=== PATIENT | female | born 1960 | race Caucasian/White ===

== ENCOUNTER 2017-07-13 19:59 | Emergency (ER) | payer OTHER ==
[2017-07-13 20:37] LABS: BILIRUBIN,URINE NEGATIVE (NEGATIVE); GLUCOSE, URINE (UA) NEGATIVE (NEGATIVE); KETONES,URINE (UA) NEGATIVE (NEGATIVE); LEUKOCYTE ESTERASE, URINE NEGATIVE (NEGATIVE); NITRITE,URINE NEGATIVE (NEGATIVE); OCCULT BLOOD,URINE NEGATIVE (NEGATIVE); PH,URINE 5.5 PH (5.0-7.5); PROTEIN,URINE NEGATIVE (NEGATIVE); UROBILINOGEN,URINE 1 (NORMAL) E.U./dL (NORMAL)
[2017-07-13 20:38] LABS: CLARITY,URINE CLEAR (CLEAR)
[2017-07-13 20:58] LABS: BASOPHILS # (AUTO) 0.1 10^3/uL (0.0-0.1); BASOPHILS % (AUTO) 1.1 %; EOSINOPHILS # (AUTO) 0.1 10^3/uL (0.0-0.7); EOSINOPHILS % (AUTO) 0.9 %; HGB - HEMOGLOBIN 13.9 g/dL (12.0-16.0); LYMPHOCYTES % (AUTO) 20.9 %; MEAN CORPUSCULAR HEMOGLOBIN 28.7 pg (27.0-31.0); MEAN CORPUSCULAR HGB CONC 33.6 g/dL (32.0-36.0); MEAN CORPUSCULAR VOLUME 85.5 fL (81.0-99.0); MEAN PLATELET VOLUME 8.5 fL (7.9-10.8); MONOCYTES # (AUTO) 0.8 10^3/uL (0.0-1.0); MONOCYTES % (AUTO) 8.7 %; NEUTROPHILS # (AUTO) 6.4 10^3/uL (1.5-6.6); NEUTROPHILS % (AUTO) 68.4 %; PLT - PLATELET COUNT 338 10^3/uL (130-450); RED BLOOD COUNT 4.83 10^6/uL (4.20-5.40); RED CELL DISTRIBUTION WIDTH 13.1 % (12.0-15.0); WHITE BLOOD COUNT 9.4 x10^3/uL (4.8-10.8)
[2017-07-13 21:13] LABS: ALBUMIN 3.7 g/dL (3.2-5.5); ALBUMIN/GLOBULIN RATIO 0.9 (1.0-2.2); BILIRUBIN,TOTAL 1.9 mg/dL (0.2-1.0); CALCIUM 9.1 mg/dL (8.5-10.3); CREATININE 0.7 mg/dL (0.4-1.0)
--- NOTE | 2017-07-13 22:46 | ED Physician Documentation ---
PD HPI ABD PAIN - Stated complaint Stated Complaint: R SIDE PX - Chief complaint Chief Complaint: Abd Pain - History obtained from History obtained from: Patient - History of Present Illness Timing - onset: How many days ago (4) Timing - details: Abrupt onset, Intermittant, Waxing and waning Pain level max: 10 Pain level now: 3 Quality: Pain Location: RUQ Radiation: Right flank Improved by: Other (no ameliorating factors) Worsened by: Eating Associated symptoms: Nausea, Vomiting. No: Fever, Diarrhea, Constipation Similar symptoms before: Has not had sx before - Additional information Additional information: 4 days of episodes of right upper quadrant pain radiating to right flank, became severe this evening although improved prior to this eval. Review of Systems Constitutional: reports: Reviewed and negative Cardiac: reports: Reviewed and negative Respiratory: reports: Reviewed and negative GI: reports: Abdominal Pain, Abdominal Swelling, Nausea, Vomiting. denies: Constipation, Diarrhea, Hematemesis, Bloody / black stool : denies: Dysuria, Frequency PD PAST MEDICAL HISTORY - Past Medical History Past Medical History: Yes Cardiovascular: Congestive heart failure Respiratory: None Neuro: None Endocrine/Autoimmune: None GI: None [employer]: None : None HEENT: None Musculoskeletal: Scoliosis Derm: Other drug resistant infections - Past Surgical History Past Surgical History: Yes Ortho: Carpal Tunnel surgery - Present Medications Home Medications: Ambulatory Orders Medication Instructions Recorded Confirmed Ondansetron Odt [Zofran] 4 mg TL Q6H PRN #20 tablet 07/14/17 oxyCODONE [Roxicodone] 5 - 10 mg PO Q6H PRN #20 tablet 07/14/17 - Social History Does the pt smoke?: No Smoking Status: Never smoker Does the pt drink ETOH?: Yes Does the pt have substance abuse?: No - Immunizations Immunizations are current?: Yes PD ED PE NORMAL - Vitals Vital signs reviewed: Yes - General General: Alert and oriented X 3, No acute distress, Well developed/nourished - Cardiac Cardiac: RRR, No murmur - Respiratory Respiratory: No respiratory distress, Clear bilaterally - Abdomen Abdomen: Normal bowel sounds, Soft, Non distended, Other (mild RUQ tenderness without rebound or guarding) - Back Back: No CVA TTP - Derm Derm: Normal color, Warm and dry, No rash - Extremities Extremities: No edema Results - Vitals Vitals: Oxygen O2 Source Room air - Labs Labs: Laboratory Tests 07/13/17 07/13/17 07/13/17 20:25 20:54 20:54 WBC 9.4 RBC 4.83 Hgb 13.9 Hct 41.3 MCV 85.5 MCH 28.7 MCHC 33.6 RDW 13.1 Plt Count 338 MPV 8.5 Neut # 6.4 Lymph # 2.0 [place] # 0.8 Eos # 0.1 Baso # 0.1 Absolute Nucleated RBC 0.00 Nucleated RBC % 0.0 Sodium 135 Potassium 3.6 Chloride 101 Carbon Dioxide 24 Anion Gap 10.0 BUN 11 Creatinine 0.7 Estimated GFR (MDRD) 86 L Glucose 145 H Calcium 9.1 Total Bilirubin 1.9 H AST 314 H ALT 206 H Alkaline Phosphatase 142 H Total Protein 8.0 Albumin 3.7 Globulin 4.3 H Albumin/Globulin Ratio 0.9 L Lipase 26 Urine Color YELLOW Urine Clarity CLEAR Urine pH 5.5 Ur Specific [place] 1.010 Urine Protein NEGATIVE Urine Glucose (UA) NEGATIVE Urine Ketones NEGATIVE Urine Occult Blood NEGATIVE Urine Nitrite NEGATIVE Urine Bilirubin NEGATIVE Urine Urobilinogen 1 (NORMAL) Ur Leukocyte Esterase NEGATIVE Ur Microscopic Review NOT INDICATED Urine Culture Comments NOT INDICATED - Rads (name of study) RUQ US Radiology: Prelim report reviewed, See rad report PD MEDICAL DECISION MAKING - ED course Complexity details: reviewed results, re-evaluated patient, considered differential, d/w patient ED course: NAD on initial evaluation and on several reevaluations by me. she did, however, have a few more episodes of severe abdominal pain during ED stay between the times I was in room evaluating her. she tolerated small PO intake (water with PO pain medication). LFTs are elevated, but overall her appearance and test results suggest she can be discharged and seen in outpatient setting. I stressed to her the importance of returning if worse or if new signs/symptoms develop such as fever or intractable pain. she seems a very reliable patient and says she will seek follow up and will return if worse Departure - Departure Disposition: 01 Home, Self Care Clinical Impression: Biliary colic Condition: Good Instructions: ED Gallstone W Biliary Colic Follow-Up: CINTIA FRANK MD [Provider Admit Priv/Credential] - Ann Vyas ND [Primary Care Provider] - Prescriptions: Ondansetron Odt [Zofran] 4 mg TL Q6H PRN #20 tablet PRN Reason: Nausea / Vomiting oxyCODONE [Roxicodone] 5 - 10 mg PO Q6H PRN #20 tablet PRN Reason: Pain Discharge Date/Time: 07/14/17 03:20
--- NOTE | 2017-07-14 00:53 | Ultrasound Report ---
EXAM: ABDOMEN ULTRASOUND LIMITED, RUQ EXAM DATE: 07/14/2017 12:26 AM. CLINICAL HISTORY: RUQ pain. COMPARISON: None. TECHNIQUE: Real-time scanning was performed with static images obtained. FINDINGS: Liver: Moderate increased echogenicity. No suspicious focal lesion. Liver measures 18.1 cm in length. Portal Vein: Patent with hepatopetal flow. Gallbladder: There is gallbladder wall thickening. Gallbladder sludge and/or dependent stones. Positi ve sonographic Jimenez sign. Biliary System: Dilated common bile duct measuring 9.5 mm. Distal CBD is obscured by bowel gas. No de finite intrahepatic biliary dilation. Pancreas: Normal appearing head and body. Other portions are obscured by overlying structures. Right Kidney: Visualized portions of the right kidney are without significant abnormality. Right kid emmanuel measures 11.7 cm in length. Other: None. IMPRESSION: 1. Mildly distended bladder with wall thickening as well as positive sonographic Jimenez sign. Depende nt sludge and stones. Combined findings are most consistent with acute cholecystitis. 2. Dilated common bile duct measuring up to 10 mm without evidence of intrahepatic biliary dilation. Distal CBD is obscured by bowel gas. [facility] Referring Provider Line: [phone] SITE ID: [id number]
--- NOTE | 2017-07-14 00:53 | Ultrasound Preliminary Report ---
Exam: US ABDOMEN LIMITED IMPRESSION: 1. Mildly distended bladder with wall thickening as well as positive sonographic Jimenez sign. Depende nt sludge and stones. Combined findings are most consistent with acute cholecystitis. 2. Dilated common bile duct measuring up to 10 mm without evidence of intrahepatic biliary dilation. Distal CBD is obscured by bowel gas. [facility] SITE ID: [id number]
[2017-07-14] MEDS ORDERED: KETOROLAC 60 MG/2 ML VIAL IVP STA (01:57)
[2017-07-14] MEDS ORDERED: oxyCODONE 5 MG TABLET PO STA (01:57)
[2017-07-14 03:27] VITALS: BP 132/68
== END 2017-07-14 03:20 | disposition home or self-care (01) ==
LOC: ED 19:59
DX: K80.50 Calculus of bile duct without cholangitis or cholecystitis without obstruction (principal)
CPT/HCPCS: 36415; 76705; 80053; 81003; 83690; 85025; 96374; 99283; A9270; 81001; 87086